=== PATIENT | female | born 1990 | race Caucasian/White ===

== ENCOUNTER 2020-09-08 08:36 | Outpatient (REF) | payer OTHER, SELFPAY ==
[2020-09-09 08:52] LABS: BV Int Neg Control Negative (Negative); BV Int Pos Control Positive (Positive)
[2020-09-09 14:17] LABS: C. trachomatis RNA TMA NOT DETECTED (NOT DETECTED); N. gonorrhoeae RNA TMA NOT DETECTED (NOT DETECTED)
== END 2020-09-08 08:37 | disposition home or self-care (01) ==
LOC: HO.LAB 08:36
PROVIDERS: Visit Provider Advanced Practice Midwife
DX: N89.8 Other specified noninflammatory disorders of vagina (principal); N94.9 Unspecified condition associated with female genital organs and menstrual cycle
CPT/HCPCS: 36415; 87480; 87491; 87510; 87591; 87660; 99212

== ENCOUNTER 2022-03-13 12:56 | Emergency (ER) | payer OTHER, SELFPAY ==
--- NOTE | 2022-03-13 | ECG_ITS ---
Test Reason : CHEST PRESSURE Blood Pressure : / mmHG Vent. Rate : 092 BPM Atrial Rate : 092 BPM P-R Int : 154 ms QRS Dur : 080 ms QT Int : 342 ms P-R-T Axes : 061 063 036 degrees QTc Int : 422 ms Normal sinus rhythm Possible Left atrial enlargement Nonspecific ST abnormality Abnormal ECG No previous ECGs available Referred By: Generic ED Physician Electronically Signed By:JONY WELCH
--- NOTE | ~2022-03-13 | XR_ITS ---
EXAMINATION: XR CHEST CLINICAL INFORMATION: Chest pain COMPARISON: None TECHNIQUE: Frontal view of the chest was obtained. FINDINGS: The lungs are well-expanded and clear. The heart size and pulmonary vascularity is normal. There is mild deformity left fifth lateral rib. Otherwise no bony abnormality seen XR/XR chest 1V IMPRESSION: Unremarkable chest exam.
[2022-03-13 13:11] VITALS: BP 117/80; PULSE 100; RESP 18; TEMP 36.8; O2SAT 97; BMI 29.2
[2022-03-13 13:38] LABS: COVID-19 Test Positive (Negative)
--- NOTE | 2022-03-13 13:55 | ED.GENADULT ---
HPI - General Adult General Chief complaint: Upper Respiratory Symptoms Stated complaint: covid exposure/coughing Time Seen by Provider: 03/13/22 13:43 Source: patient Mode of arrival: ambulatory Limitations: no limitations History of Present Illness HPI narrative: 31-year-old otherwise healthy female presents to the ER for evaluation of chest pressure that started yesterday, in the setting of recent COVID exposure. She reports on Tuesday of this week she was exposed to 1 with COVID-19 in the next day started having symptoms of fevers, headaches, body aches. She has a slight dry cough but is not short of breath. She feels intermittent squeezing chest pressure in her epigastric area that comes and goes at random times. She has no cardiac risk factors. She currently has no pain. She reports a few episodes of vomiting yesterday and this morning. She denies any abdominal pain but has persistent nausea.She has not vaccinated for COVID. MD complaint: chest pressure Onset (ago): day(s) Location: chest Radiation: non-radiation Severity: moderate Severity scale (1-10): 5 Pain Consistency: intermittent Relieving factors: none Exacerbating factors: none Associated symptoms: chest pain, cough, fever/chills, headaches, loss of appetite, malaise and nausea/vomiting Treatments prior to arrival: none Related Data Previous Rx's Medication Instructions Recorded clotrimazole-betamethasone 1 1 appl topical BID #45 grams 09/08/20 %-0.05 % topical cream fluconazole 150 mg tablet 150 mg PO ONCE PRN personal 1 day 09/08/20 (Diflucan) #1 tab metronidazole 0.75 % vaginal gel 1 appful vaginal BEDTIME 5 days 09/10/20 (Metrogel Vaginal) #70 grams ondansetron 4 mg disintegrating 4 mg PO Q8H PRN nausea and 03/13/22 tablet vomiting #7 tabs Allergies Allergy/AdvReac Type Severity Reaction Status Date / Time No Known Allergies Allergy Verified 03/13/22 13:09 Review of Systems Review of Systems: Constitutional: No Fever, No Chills ENT/Mouth: No sore throat, No Rhinorrhea, No Swallowing Difficulty Cardiovascular: +Chest Pain, No SOB, No Orthopnea, No Edema Respiratory: No Cough, No Sputum, No Wheezing, No dyspnea Gastrointestinal: No Nausea, No Vomiting, No Diarrhea, No abdominal Pain Musculoskeletal: No joint pain, No Myalgias Skin: No Skin Lesions, No rash Neuro: No Weakness, No Numbness, No Dizziness, + Headache Psych: + Anxiety/Panic, No Depression Heme/Lymph: No Bruising, No Lymphadenopathy PMFSH Past Medical History Medical History (Updated 03/13/22 @ 13:[address]) Dermoid cyst Hx of migraine headaches Surgical History (Updated 10/15/21 @ 14:14 by Coretta Garcia) Hx of section Hx of tubal ligation Social History Social History (System 10/15/21 @ 14:14 by Coretta Garcia) Alcohol intake: current Alcohol intake frequency: holidays/special occasions only Advance Directives: No Advance Directives Information Provided: No Sexual orientation: Straight/Heterosexual Physical Exam ED Vital Signs: Vital Signs - 24 hr 03/13/22 13:11 Temperature 98.2 F Pulse Rate 100 Respiratory Rate 18 Blood Pressure 117/80 Pulse Oximetry 97 Oxygen Delivery Method Room Air BMI result Body Mass Index 29.2 Appearance: Alert. Oriented X3. No acute distress. Eyes: Pupils equal, round and reactive to light. ENT: Pharynx normal. Neck: Normal inspection. Neck supple. CVS: Normal heart rate and rhythm. Pulses normal. Respiratory: No respiratory distress. Breath sounds normal. Abdomen: Soft and nontender. +BS x4 Skin: Skin warm and dry. Normal skin color. Normal skin turgor. No rashes. Extremities: No lower extremity edema. No calf tenderness Neuro: Oriented X 3 grossly normal, nonfocal Course Course Course Narrative: 31-year-old otherwise healthy female presents to the ER with intermittent fevers, nausea, vomiting, chest pressure cough after known exposure to COVID last week. She developed symptoms next day. She is unvaccinated. On arrival to the ER she is hemodynamically stable, saturating 97% on room air. She is afebrile. Her lungs are clear. her COVID test is positive today. Her EKG showed no ischemic changes. She has no significant comorbidities. We discussed symptomatic and supportive care for her COVID. We also discussed warning signs and symptoms that should prompt her to get urgently re-evaluated. At this time she is stable for discharge home with p.r.bridget [place] and supportive care. Medical Decision Making Lab Data Labs: Lab Results 03/13/22 Range/Units 13:18 COVID-19 ([facility]) Positive A (Negative) COVID-19 Clin Com See Note Critical Care Time Critical Care Time Critical Care Time: No Discharge Plan Discharge Clinical Impression: COVID-19 Patient Disposition: Home, Self-Care Instructions: Covid-19 Viral Syndrome and Novel Coronavirus (ED) Hey/Ath Additional Instructions: You were found to be COVID-19 POSITIVE today. Your EKG oxygen levels were normal. Rest. Drink plenty of fluids. Do not go out in public for the next 7 days. Take over the counter cold/flu medications as needed for your symptoms. Take Tylenol and/or Motrin as needed for fevers and body aches. Follow up with your doctor this week. If you shortness of breath worsens, if you develop difficulty breathing or any other concerning symptom come back to the ER for further evaluation. Prescriptions: New ondansetron 4 mg tablet,disintegrating 4 mg PO Q8H PRN (Reason: nausea and vomiting) Qty: 7 0RF No Action metronidazole [Metrogel Vaginal] 0.75 % gel 1 appful vaginal BEDTIME 5 Days Qty: 70 0RF fluconazole [Diflucan] 150 mg tablet 150 mg PO ONCE PRN (Reason: personal) 1 Days Qty: 1 1RF clotrimazole-betamethasone 1-0.05 % cream 1 appl topical BID Qty: 45 0RF
== END 2022-03-13 14:14 | disposition home or self-care (01) ==
PROVIDERS: Emergency Provider Student in an Organized Health Care Education/Training Program
DX: U07.1 COVID-19 (principal)
CPT/HCPCS: 71045; 87635; 93005; 99283

== ENCOUNTER 2022-05-26 03:50 | Emergency (ER) | payer OTHER, SELFPAY ==
[2022-05-26 04:03] VITALS: BP 122/70; PULSE 80; RESP 19; TEMP 37.1; O2SAT 97; BMI 31.4
[2022-05-26 04:29] LABS: COVID-19 Test Negative (Negative)
--- NOTE | 2022-05-26 04:59 | ED_ITS ---
HPI - General Adult General Chief complaint: General Medical Stated complaint: Sore throat/Earache Time Seen by Provider: 05/26/22 04:59 Source: patient Mode of arrival: ambulatory Limitations: no limitations History of Present Illness HPI narrative: Patient having sore throat for last 3 days was at [facility] 2 days ago COVID test was negative still having sore throat feel painful to swallow no fever no chills no cough Related Data Previous Rx's Medication Instructions Recorded clotrimazole-betamethasone 1 1 appl topical BID #45 grams 09/08/20 %-0.05 % topical cream fluconazole 150 mg tablet 150 mg PO ONCE PRN personal 1 day 09/08/20 (Diflucan) #1 tab metronidazole 0.75 % (37.5 mg/5 1 appful vaginal BEDTIME 5 days 09/10/20 gram) vaginal gel (Metrogel #70 grams Vaginal) ondansetron 4 mg disintegrating 4 mg PO Q8H PRN nausea and 03/13/22 tablet vomiting #7 tabs amoxicillin 875 mg-potassium 1 tab PO BID #20 tabs 05/26/22 clavulanate 125 mg tablet Allergies Allergy/AdvReac Type Severity Reaction Status Date / Time No Known Allergies Allergy Verified 03/13/22 13:09 Review of Systems Review of Systems: Yes all other systems are reviewed and are negative PMFSH Past Medical History Medical History Dermoid cyst Hx of migraine headaches Surgical History Hx of section Hx of tubal ligation Social History Social History Alcohol intake: current Alcohol intake frequency: holidays/special occasions only Advance Directives: No Advance Directives Information Provided: No Sexual orientation: Straight/Heterosexual Physical Exam ED Vital Signs: Vital Signs - 24 hr 05/26/22 04:03 Temperature 98.8 F Pulse Rate 80 Respiratory Rate 19 Blood Pressure 122/70 Pulse Oximetry 97 Oxygen Delivery Method Room Air BMI result Body Mass Index 31.4 Appearance: Alert. Oriented X3. No acute distress. ENT: Pharynx erythema+ Oral Mucosa moist Neck: Normal inspection. Neck supple. CVS: Normal heart rate and rhythm. Pulses normal. Respiratory: No respiratory distress. Equal air entry bilateral, no wheezing/rales/rhonchi Abdomen: Soft and nontender. Bowel sounds are present, Skin: Skin warm and dry. Normal skin color. Normal skin turgor. Extremities: No lower extremity edema. No calf tenderness Neuro: Oriented X 3. Medical Decision Making Lab Data Lab results reviewed: Yes I reviewed the patient's lab results. Labs: Lab Results 05/26/22 Range/Units 04:09 COVID-19 ([facility]) Negative (Negative) COVID-19 Clin Com See Note Discharge Plan Discharge Clinical Impression: Acute pharyngitis Patient Disposition: Home, Self-Care Instructions: Pharyngitis (ED) Additional Instructions: Drink plenty of fluids Take antibiotic as prescribed Follow with PCP if not better Prescriptions: New amoxicillin-pot clavulanate 875-125 mg tablet 1 tab PO BID Qty: 20 0RF No Action metronidazole [Metrogel Vaginal] 0.75 % gel 1 appful vaginal BEDTIME 5 Days Qty: 70 0RF ondansetron 4 mg tablet,disintegrating 4 mg PO Q8H PRN (Reason: nausea and vomiting) Qty: 7 0RF fluconazole [Diflucan] 150 mg tablet 150 mg PO ONCE PRN (Reason: personal) 1 Days Qty: 1 1RF clotrimazole-betamethasone 1-0.05 % cream 1 appl topical BID Qty: 45 0RF Interventions: ED Discharge Assessment Last Done: 05/26/22 05:29 Discharge Date/Time: 05/26/22 05:31
[2022-05-26] MEDS: Amoxicillin/Potassium Clav 875 MG TABLET PO (05:25)
== END 2022-05-26 05:31 | disposition home or self-care (01) ==
PROVIDERS: Emergency Provider Internal Medicine
DX: J02.9 Acute pharyngitis, unspecified (principal); H92.03 Otalgia, bilateral; Z20.822 Contact with and (suspected) exposure to COVID-19; Z79.899 Other long term (current) drug therapy
CPT/HCPCS: 87635; 99283